=== PATIENT | female | born 1940 | race Caucasian/White ===

== ENCOUNTER 2017-02-04 10:00 | Inpatient (IN) | payer OTHER, BC ==
[~2017-02-04] VITALS: Ht 152.4 cm; Wt 111.6 kg
[~2017-02-04 10:00] MED LIST: ALLOPURINOL100 MG PO; AMLODIPINE BESYL5 MG PO; ASPIR 8181 M1 PO; BONINE25 MG PO; CARVEDILOL25 MG PO; CELEXA40 MG PO; CITALOPRAM HBR20 MG PO; CITALOPRAM HBR40 MG PO; COLCRYS0.6 MG PO; COREG25 M1 PO; DAILY VITE1 EAC1 PO; FLEXERIL10 MG PO; FLUTICASONE PRO16 GM BOTH NARES; FUROSEMIDE40 MG PO; GABAPENTIN300 MG PO; HYDROCHLOROTHIA25 MG PO; IMDUR30 MG PO; LASIX20 MG PO; LEVAQUIN750 MG PO; LIDOCAINE700 MG TD; LIPITOR80 MG PO; LISINOPRIL40 MG PO; LOPRESSOR50 MG PO; NITROSTAT0.4 MG SL; OXYCODONE HCL5 MG PO; POLYETHYLENE GL17 GM PO; POTASSIUM CHLO20 ME1 PO; RANITIDINE HCL150 MG PO; SENNA-TIME S T1 EACH PO; SUMATRIPTAN SUC25 MG PO; SYSTANE BALANCE10 ML BOTH EYES; TOPIRAMATE25 MG PO; TRAMADOL HCL50 MG PO; TYLENOL EXTRA500 MG PO; VENTOLIN HFA18 GM IH; VITAMIN B-125000 MC1 PO; VITAMIN B-6100 MG PO; VITAMIN D22000 UNIT PO; VITAMIN D31000 UNI2 PO; ZESTRIL40 MG PO; ZYLOPRIM100 MG PO; ZYRTEC10 M2 PO
[2017-02-04 11:18] LABS: BASOPHIL COUNT 0.1 K/uL (0-0.1); EOSINOPHIL (%) 1.4 % (0-5); EOSINOPHIL COUNT 0.2 K/uL (0-0.3); HEMATOCRIT 34.1 % (36.0-46.0); IMMATURE GRANULOCYTE (%) 0.6 % (0.0-0.7); IMMATURE GRANULOCYTE COUNT 0.1 K/uL; INSTRUMENT ABS NEUTROPHIL CT 7.2 K/uL; LYMPHOCYTE COUNT 2.1 K/uL (1.0-2.8); MCH 29.6 PG (29.0-34.0); MCHC 32.6 G/DL (30.0-36.0); MCV 90.9 FL (83-99); MEAN PLAT.VOLUME 9.4 uM^3 (9.5-12.4); MONOCYTE (%) 8.5 % (3-12); MONOCYTE COUNT 0.9 K/uL (0-0.8); NEUTROPHIL (%) 68.5 % (45-76); NEUTROPHIL COUNT 7.2 K/uL (1.8-6.4); PLATELET COUNT 264 K/uL (156-360); RBC DIS.WIDTH-SD 46.8 % (39-53); RED BLOOD COUNT 3.75 M/uL (3.80-5.20); WHITE BLOOD COUNT 10.5 K/uL (4.1-10.2)
[2017-02-04 11:26] LABS: CHLORIDE 102 mEq/L (99-109); SODIUM 138 mEq/L (136-147)
[2017-02-04 11:28] LABS: GLUCOSE 95 mg/dL (70-99)
[2017-02-04 11:29] LABS: ANION GAP 9 MEQ/L (2-14)
[2017-02-04 11:30] LABS: TOTAL BILIRUBIN 0.8 mg/dL (0.0-1.0)
[2017-02-04 11:32] LABS: ALKALINE PHOSPHATASE 123 IU/L (3-129); GFR ESTIMATE (CALCULATED) 58 mL/min/
[2017-02-04 11:33] LABS: UREA NITROGEN (BUN) 25 mg/dL (9-23)
[2017-02-04 11:35] LABS: LIPASE 17 U/L (1.0-51.0)
[2017-02-04 12:45] LABS: ADD MIUA? YES; BILIRUBIN NEGATIVE; BLOOD NEGATIVE; COLOR YELLOW ((YELLOW)); GLUCOSE (STRIP) NEGATIVE; KETONES NEGATIVE; LEUKOCYTES MODERATE; NITRITE NEGATIVE; PROTEIN (STRIP) NEGATIVE; SPECIFIC GRAVITY 1.015 (1.000-1.030); UROBILINOGEN 0.2 MG/DL (0.2-1.0)
[2017-02-04 13:17] LABS: BACTERIA NONE SEEN /HPF; EPITHELIAL CELLS 1+ /HPF; MUCUS NONE SEEN /LPF; RED BLOOD CELLS 0-5 /HPF (0-5); UCUL ADDED? NO; WHITE BLOOD CELLS 20-30 /HPF (0-5)
[2017-02-04 15:06] LABS: C DIFF TOXIN NEGATIVE (NEGATIVE)
[2017-02-04] MEDS ORDERED: ISOSORBIDE DINI30 MG PO (15:24)
[2017-02-04] MEDS ORDERED: IRON325 M1 PO (15:26)
[2017-02-04] MEDS ORDERED: FLONASE16 G1 BOTH NARES (15:27)
[2017-02-04] MEDS ORDERED: CALCIUM 500 +1 EAC4 PO (15:27)
[2017-02-04] MEDS ORDERED: TYLENOL REGULA325 MG PO (15:30)
[2017-02-04] MEDS ORDERED: CIPRO500 MG PO (15:31)
[2017-02-04] MEDS ORDERED: ZOFRAN8 MG PO (15:32)
[2017-02-04] MEDS ORDERED: GAS-X125 MG PO (15:32)
[2017-02-04] MEDS ORDERED: CELEXA40 MG PO (15:33)
[2017-02-04] MEDS ORDERED: VITAMIN B-6100 MG PO (15:36)
[2017-02-04 15:40] LABS: PROBE CHECK PASS; SPECIMEN PROCESSING CONTROL PASS
[2017-02-04 18:26] VITALS: BP 144/66
[2017-02-04 20:16] VITALS: BP 159/65
[2017-02-04 23:15] VITALS: BP 145/68
[2017-02-05 04:32] VITALS: BP 119/59
[2017-02-05 05:55] LABS: BASOPHIL COUNT 0.1 K/uL (0-0.1); EOSINOPHIL COUNT 0.1 K/uL (0-0.3); HEMATOCRIT 30.2 % (36.0-46.0); IMMATURE GRANULOCYTE (%) 0.7 % (0.0-0.7); IMMATURE GRANULOCYTE COUNT 0.1 K/uL; INSTRUMENT ABS NEUTROPHIL CT 8.3 K/uL; LYMPHOCYTE COUNT 2.4 K/uL (1.0-2.8); MCHC 33.8 G/DL (30.0-36.0); MCV 91.8 FL (83-99); MEAN PLAT.VOLUME 9.5 uM^3 (9.5-12.4); MONOCYTE (%) 8.5 % (3-12); NEUTROPHIL (%) 69.5 % (45-76); NEUTROPHIL COUNT 8.3 K/uL (1.8-6.4); PLATELET COUNT 234 K/uL (156-360); RBC DIS.WIDTH-CV 14.2 % (11.8-14.6); RED BLOOD COUNT 3.29 M/uL (3.80-5.20); WHITE BLOOD COUNT 11.9 K/uL (4.1-10.2)
[2017-02-05 06:22] LABS: ANION GAP 7 MEQ/L (2-14); CHLORIDE 105 MEQ/L (99-109); GFR ESTIMATE (CALCULATED) > 59 mL/min/; GLUCOSE 95 mg/dL (70-99); POTASSIUM 3.8 MEQ/L (3.7-5.4); SAMPLE HEMOLYSIS CHECK 0; SAMPLE ICTERIC CHECK 0; SAMPLE LIPEMIA CHECK 0; SODIUM 138 MEQ/L (136-147); UREA NITROGEN (BUN) 16 mg/dL (9-23)
[2017-02-05 08:22] VITALS: BP 132/67
[2017-02-05 16:27] VITALS: BP 116/55
[2017-02-06 00:06] VITALS: BP 108/57
[2017-02-06 07:30] VITALS: BP 142/65
[2017-02-06 10:56] LABS: HEMATOCRIT 28.2 % (36.0-46.0); MCH 29.6 PG (29.0-34.0); MCHC 31.9 G/DL (30.0-36.0); MCV 92.8 FL (83-99); MEAN PLAT.VOLUME 9.5 uM^3 (9.5-12.4); PLATELET COUNT 234 K/uL (156-360); RBC DIS.WIDTH-CV 14.3 % (11.8-14.6); RBC DIS.WIDTH-SD 48.2 % (39-53); RED BLOOD COUNT 3.04 M/uL (3.80-5.20); WHITE BLOOD COUNT 7.5 K/uL (4.1-10.2)
[2017-02-06 15:00] VITALS: BP 130/60
[2017-02-07 06:34] LABS: HEMATOCRIT 28.5 % (36.0-46.0); MCH 30.1 PG (29.0-34.0); MCV 91.3 FL (83-99); MEAN PLAT.VOLUME 9.4 uM^3 (9.5-12.4); PLATELET COUNT 247 K/uL (156-360); RBC DIS.WIDTH-SD 46.9 % (39-53); RED BLOOD COUNT 3.12 M/uL (3.80-5.20); WHITE BLOOD COUNT 10.3 K/uL (4.1-10.2)
[2017-02-07 07:30] VITALS: BP 167/70
[2017-02-07 12:00] VITALS: BP 176/76
[2017-02-07 15:50] VITALS: BP 162/69
[2017-02-08 00:04] VITALS: BP 170/71
[2017-02-08 06:47] LABS: MCH 30.2 PG (29.0-34.0); MCHC 33.8 G/DL (30.0-36.0); MCV 89.5 FL (83-99); MEAN PLAT.VOLUME 9.5 uM^3 (9.5-12.4); PLATELET COUNT 243 K/uL (156-360); RBC DIS.WIDTH-CV 13.9 % (11.8-14.6); RBC DIS.WIDTH-SD 45.1 % (39-53); RED BLOOD COUNT 3.24 M/uL (3.80-5.20); WHITE BLOOD COUNT 11.5 K/uL (4.1-10.2)
[2017-02-08 07:18] LABS: ANION GAP 11 MEQ/L (2-14); CHLORIDE 105 MEQ/L (99-109); GFR ESTIMATE (CALCULATED) > 59 mL/min/; GLUCOSE 78 mg/dL (70-99); POTASSIUM 3.3 MEQ/L (3.7-5.4); SAMPLE HEMOLYSIS CHECK 0; SAMPLE ICTERIC CHECK 0; SAMPLE LIPEMIA CHECK 0; SODIUM 139 MEQ/L (136-147); UREA NITROGEN (BUN) 10 mg/dL (9-23)
[2017-02-08 07:30] VITALS: BP 155/81
[2017-02-08 16:26] VITALS: BP 179/76
[2017-02-08 21:55] LABS: C DIFF TOXIN ND (NEGATIVE)
[2017-02-08 23:37] VITALS: BP 138/69
[2017-02-09 06:49] LABS: HEMATOCRIT 28.6 % (36.0-46.0); MCH 29.9 PG (29.0-34.0); MCHC 33.6 G/DL (30.0-36.0); MCV 89.1 FL (83-99); MEAN PLAT.VOLUME 9.3 uM^3 (9.5-12.4); NRBC (%) 0.2 /100 WBC (0-0); PLATELET COUNT 253 K/uL (156-360); RBC DIS.WIDTH-CV 13.9 % (11.8-14.6); RBC DIS.WIDTH-SD 45.3 % (39-53); RED BLOOD COUNT 3.21 M/uL (3.80-5.20); WHITE BLOOD COUNT 9.7 K/uL (4.1-10.2)
[2017-02-09 07:18] LABS: ANION GAP 9 MEQ/L (2-14); CHLORIDE 107 MEQ/L (99-109); GFR ESTIMATE (CALCULATED) > 59 mL/min/; GLUCOSE 90 mg/dL (70-99); POTASSIUM 3.4 MEQ/L (3.7-5.4); SAMPLE HEMOLYSIS CHECK 0; SAMPLE ICTERIC CHECK 0; SAMPLE LIPEMIA CHECK 0; SODIUM 140 MEQ/L (136-147); UREA NITROGEN (BUN) 11 mg/dL (9-23)
[2017-02-09 07:35] VITALS: BP 172/79
[2017-02-09] MEDS ORDERED: LEVAQUIN750 MG PO ×2 (10:26→10:27)
[2017-02-09] MEDS ORDERED: FLAGYL500 MG PO ×2 (10:26→10:27)
== END 2017-02-09 11:45 | disposition home health service (06) | DRG 392 ==
LOC: EME 10:00 → 2EAST 16:08 → EDOF 16:08 → 2EAST 18:02
PROVIDERS: Emergency Medicine; Hospitalist
DX: K57.32 Diverticulitis of large intestine without perforation or abscess without bleeding (principal); I11.0 Hypertensive heart disease with heart failure; I50.32 Chronic diastolic (congestive) heart failure; R53.1 Weakness; E78.00 Pure hypercholesterolemia, unspecified; E78.5 Hyperlipidemia, unspecified; G47.33 Obstructive sleep apnea (adult) (pediatric); I25.10 Atherosclerotic heart disease of native coronary artery without angina pectoris; K21.9 Gastro-esophageal reflux disease without esophagitis; K52.9 Noninfective gastroenteritis and colitis, unspecified; K59.00 Constipation, unspecified; K62.89 Other specified diseases of anus and rectum; Z68.42 Body mass index [BMI] 45.0-49.9, adult; Z79.82 Long term (current) use of aspirin; Z79.899 Other long term (current) drug therapy; Z98.61 Coronary angioplasty status; Z86.73 Personal history of transient ischemic attack (TIA), and cerebral infarction without residual deficits; Z87.19 Personal history of other diseases of the digestive system; R51 Headache; E66.9 Obesity, unspecified
CPT/HCPCS: 71020; 74177; 80048; 80053; 81003; 83605; 83615; 83690; 85025; 85027; 87040; 87493; 93005; 94660; 94799; 99281; 99285; J0696; J0744; J1650; J1956; J2270; J2405; J2543; J2765; J3370; J7030; J7050; S0028; S0030

== ENCOUNTER → 2017-05-04 | Outpatient (CLI) | payer OTHER, BC ==
[~2017-05-04] VITALS: Ht 151.1 cm; Wt 113.4 kg
[~2017-05-04] MED LIST changes: +CALCIUM 500 +1 EAC4 PO; +CIPRO500 MG PO; +FLAGYL500 MG PO; +FLONASE16 G1 BOTH NARES; +GAS-X125 MG PO; +IRON325 M1 PO; +ISOSORBIDE DINI30 MG PO; +TYLENOL REGULA325 MG PO; +ZOFRAN8 MG PO
== END | disposition home or self-care (01) ==
LOC: AMB 12:14
DX: K57.32 Diverticulitis of large intestine without perforation or abscess without bleeding (principal); D12.3 Benign neoplasm of transverse colon; K63.5 Polyp of colon; K64.8 Other hemorrhoids; K52.9 Noninfective gastroenteritis and colitis, unspecified; K59.00 Constipation, unspecified; Z79.82 Long term (current) use of aspirin; E66.9 Obesity, unspecified; Z68.42 Body mass index [BMI] 45.0-49.9, adult; Z90.49 Acquired absence of other specified parts of digestive tract; Z90.710 Acquired absence of both cervix and uterus; Z96.653 Presence of artificial knee joint, bilateral
CPT/HCPCS: 88305

== ENCOUNTER 2017-07-27 11:32 | Day surgery (SDC) | payer OTHER, BC ==
[~2017-07-27] VITALS: Ht 165.1 cm; Wt 115.0 kg
== END 2017-07-27 18:30 | disposition home or self-care (01) ==
LOC: CATH 11:32
DX: I25.10 Atherosclerotic heart disease of native coronary artery without angina pectoris (principal); I10 Essential (primary) hypertension; E66.01 Morbid (severe) obesity due to excess calories; Z68.42 Body mass index [BMI] 45.0-49.9, adult; E78.5 Hyperlipidemia, unspecified; G47.33 Obstructive sleep apnea (adult) (pediatric); Z79.82 Long term (current) use of aspirin; Z86.73 Personal history of transient ischemic attack (TIA), and cerebral infarction without residual deficits; Z95.5 Presence of coronary angioplasty implant and graft
CPT/HCPCS: C1769; C1887; J1644; J2250; J3010

== ENCOUNTER 2017-12-20 13:37 | Emergency (ER) | payer OTHER, BC ==
[~2017-12-20] VITALS: Ht 152.4 cm; Wt 106.0 kg
[2017-12-20 16:07] LABS: BASOPHIL (%) 0.5 % (0-1); EOSINOPHIL (%) 3.8 % (0-5); EOSINOPHIL COUNT 0.2 K/uL (0-0.3); HEMATOCRIT 33.4 % (36.0-46.0); HEMOGLOBIN 11.1 G/DL (11.9-15.5); IMMATURE GRANULOCYTE (%) 0.3 % (0.0-0.7); LYMPHOCYTE (%) 46.1 % (15-42); LYMPHOCYTE COUNT 2.7 K/uL (1.0-2.8); MCH 29.6 PG (29.0-34.0); MCHC 33.2 G/DL (30.0-36.0); MCV 89.1 FL (83-99); MONOCYTE (%) 8.9 % (3-12); MONOCYTE COUNT 0.5 K/uL (0-0.8); NEUTROPHIL (%) 40.4 % (45-76); NEUTROPHIL COUNT 2.4 K/uL (1.8-6.4); PLATELET COUNT 200 K/uL (156-360); RBC DIS.WIDTH-SD 48.1 % (39-53); RED BLOOD COUNT 3.75 M/uL (3.80-5.20); WHITE BLOOD COUNT 5.9 K/uL (4.1-10.2)
[2017-12-20 16:16] LABS: CHLORIDE 106 mEq/L (99-109); POTASSIUM 3.9 mEq/L (3.7-5.4); SODIUM 145 mEq/L (136-147)
[2017-12-20 16:18] LABS: GLUCOSE 90 mg/dL (70-99)
[2017-12-20 16:22] LABS: CREATININE 0.8 mg/dL (0.6-1.3); GFR ESTIMATE (CALCULATED) > 59 mL/min/
[2017-12-20 16:23] LABS: UREA NITROGEN (BUN) 20 mg/dL (9-23)
[2017-12-20 16:28] LABS: TROP-I INTERPRETATION NEGATIVE; TROPONIN-I < 0.01 ng/mL (0.0-0.30)
[2017-12-20 17:13] LABS: APPEARANCE CLEAR ((CLEAR)); BILIRUBIN NEGATIVE; BLOOD NEGATIVE; COLOR YELLOW ((YELLOW)); GLUCOSE (STRIP) NEGATIVE; KETONES NEGATIVE; LEUKOCYTES TRACE; NITRITE NEGATIVE; PROTEIN (STRIP) NEGATIVE; SPECIFIC GRAVITY 1.016 (1.000-1.030)
[2017-12-20 17:23] LABS: BACTERIA NONE SEEN /HPF; EPITHELIAL CELLS RARE /HPF; HYALINE CASTS 0-5 /LPF; MUCUS TRACE /LPF; RED BLOOD CELLS 0-5 /HPF (0-5); UCUL ADDED? NO; WHITE BLOOD CELLS 0-5 /HPF (0-5)
[2017-12-20 20:08] VITALS: BP 144/79
== END 2017-12-20 20:20 | disposition home or self-care (01) ==
LOC: EME 13:37
PROVIDERS: Emergency Medicine
DX: I95.1 Orthostatic hypotension (principal); R00.1 Bradycardia, unspecified; E78.5 Hyperlipidemia, unspecified; M19.90 Unspecified osteoarthritis, unspecified site; Z79.82 Long term (current) use of aspirin; Z95.9 Presence of cardiac and vascular implant and graft, unspecified; Z96.653 Presence of artificial knee joint, bilateral; Z98.41 Cataract extraction status, right eye; Z98.42 Cataract extraction status, left eye; Z98.890 Other specified postprocedural states; Z86.73 Personal history of transient ischemic attack (TIA), and cerebral infarction without residual deficits; Z86.79 Personal history of other diseases of the circulatory system; Z90.49 Acquired absence of other specified parts of digestive tract; Z85.9 Personal history of malignant neoplasm, unspecified
CPT/HCPCS: 71046; 80048; 81003; 83605; 83880; 84484; 85025; 87040; 93005; 99281; 99285

== ENCOUNTER 2018-03-02 13:28 | Inpatient (IN) | payer OTHER, BC ==
[~2018-03-02] VITALS: Ht 152.4 cm; Wt 99.6 kg
[2018-03-02 13:47] LABS: HEMATOCRIT 35.7 % (36.0-46.0); HEMOGLOBIN 12.1 G/DL (11.9-15.5); MCHC 33.9 G/DL (30.0-36.0); MCV 88.4 FL (83-99); PLATELET COUNT 196 K/uL (156-360); RBC DIS.WIDTH-CV 14.6 % (11.8-14.6); RBC DIS.WIDTH-SD 46.6 % (39-53); RED BLOOD COUNT 4.04 M/uL (3.80-5.20); WHITE BLOOD COUNT 10.4 K/uL (4.1-10.2)
[2018-03-02 13:59] LABS: ALBUMIN 4.2 g/dL (3.2-4.8)
[2018-03-02 14:00] LABS: CHLORIDE 104 mEq/L (99-109); POTASSIUM 3.8 mEq/L (3.7-5.4); SODIUM 140 mEq/L (136-147)
[2018-03-02 14:02] LABS: GLUCOSE 85 mg/dL (70-99); TOTAL PROTEIN 7.2 g/dL (6.4-8.3)
[2018-03-02 14:04] LABS: TOTAL BILIRUBIN 0.7 mg/dL (0.0-1.0)
[2018-03-02 14:05] LABS: ALKALINE PHOSPHATASE 147 IU/L (3-129)
[2018-03-02 14:06] LABS: CREATININE 0.9 mg/dL (0.6-1.3); GFR ESTIMATE (CALCULATED) > 59 mL/min/
[2018-03-02 14:07] LABS: AST (GOT) 20 IU/L (2-34); UREA NITROGEN (BUN) 13 mg/dL (9-23)
[2018-03-02 14:09] LABS: ALT (GPT) 15 IU/L (3-49); LIPASE 7 U/L (1.0-51.0)
[2018-03-02 16:14] LABS: APPEARANCE CLEAR ((CLEAR)); BILIRUBIN NEGATIVE; BLOOD SMALL; COLOR YELLOW ((YELLOW)); GLUCOSE (STRIP) NEGATIVE; KETONES NEGATIVE; LEUKOCYTES MODERATE; NITRITE NEGATIVE; PROTEIN (STRIP) NEGATIVE; SPECIFIC GRAVITY 1.019 (1.000-1.030)
[2018-03-02 16:19] LABS: BACTERIA RARE /HPF; EPITHELIAL CELLS RARE /HPF; MUCUS TRACE /LPF; RED BLOOD CELLS 0-5 /HPF (0-5); UCUL ADDED? YES
[2018-03-02] MEDS ORDERED: K-DUR20 MEQ PO (18:48)
[2018-03-02] MEDS ORDERED: LIPITOR80 MG PO (18:49)
[2018-03-02] MEDS ORDERED: NITROSTAT0.4 MG SL (18:49)
[2018-03-02] MEDS ORDERED: LISINOPRIL20 MG PO (18:50)
[2018-03-02] MEDS ORDERED: COREG12.5 M1 PO (18:52)
[2018-03-02] MEDS ORDERED: LASIX20 MG PO (18:54)
[2018-03-02] MEDS ORDERED: ZYRTEC5 MG PO (18:54)
[2018-03-02] MEDS ORDERED: ARTIFICIAL TEAR15 M1 BOTH EYES (18:55)
[2018-03-02] MEDS ORDERED: ALLOPURINOL100 MG PO (18:58)
[2018-03-02] MEDS ORDERED: IBUPROFEN600 MG PO (18:58)
[2018-03-02 20:40] VITALS: BP 150/67
[2018-03-03] VITALS (7 sets, daily range): BP systolic 102–162; BP diastolic 51–73
[2018-03-03 05:48] LABS: BASOPHIL (%) 0.6 % (0-1); EOSINOPHIL (%) 2.5 % (0-5); EOSINOPHIL COUNT 0.2 K/uL (0-0.3); HEMATOCRIT 30.8 % (36.0-46.0); IMMATURE GRANULOCYTE (%) 0.2 % (0.0-0.7); LYMPHOCYTE (%) 30.9 % (15-42); MCH 29.3 PG (29.0-34.0); MCHC 32.5 G/DL (30.0-36.0); MCV 90.3 FL (83-99); MONOCYTE (%) 9.5 % (3-12); MONOCYTE COUNT 0.6 K/uL (0-0.8); NEUTROPHIL (%) 56.3 % (45-76); NEUTROPHIL COUNT 3.6 K/uL (1.8-6.4); RBC DIS.WIDTH-CV 14.9 % (11.8-14.6); RBC DIS.WIDTH-SD 49.1 % (39-53); RED BLOOD COUNT 3.41 M/uL (3.80-5.20); WHITE BLOOD COUNT 6.3 K/uL (4.1-10.2)
[2018-03-03 05:59] LABS: ALBUMIN 3.3 G/DL (3.2-4.8); ALKALINE PHOSPHATASE 98 IU/L (3-129); ALT (GPT) 9 IU/L (3-49); AST (GOT) 14 IU/L (2-34); CHLORIDE 109 MEQ/L (99-109); CREATININE 0.9 MG/DL (0.6-1.3); GFR ESTIMATE (CALCULATED) > 59 mL/min/; GLUCOSE 98 mg/dL (70-99); PLATELET CLUMPS PRESENT - PLATELET COUNT APPEARS ADQ.; POTASSIUM 3.3 MEQ/L (3.7-5.4); SODIUM 142 MEQ/L (136-147); TOTAL BILIRUBIN 0.7 MG/DL (0.0-1.0); TOTAL PROTEIN 5.4 G/DL (6.4-8.3); UREA NITROGEN (BUN) 14 mg/dL (9-23)
[2018-03-03 06:00] LABS: PLATELET COUNT UNABLE TO REPORT K/uL (156-360)
[2018-03-04 03:55] VITALS: BP 150/60
[2018-03-04 06:49] LABS: BASOPHIL (%) 0.8 % (0-1); EOSINOPHIL (%) 3.8 % (0-5); EOSINOPHIL COUNT 0.2 K/uL (0-0.3); HEMATOCRIT 28.9 % (36.0-46.0); HEMOGLOBIN 9.5 G/DL (11.9-15.5); IMMATURE GRANULOCYTE (%) 0.2 % (0.0-0.7); LYMPHOCYTE (%) 39.3 % (15-42); LYMPHOCYTE COUNT 2.1 K/uL (1.0-2.8); MCH 29.6 PG (29.0-34.0); MCHC 32.9 G/DL (30.0-36.0); MONOCYTE COUNT 0.5 K/uL (0-0.8); NEUTROPHIL (%) 46.9 % (45-76); NEUTROPHIL COUNT 2.4 K/uL (1.8-6.4); RBC DIS.WIDTH-CV 14.6 % (11.8-14.6); RBC DIS.WIDTH-SD 48.4 % (39-53); RED BLOOD COUNT 3.21 M/uL (3.80-5.20); WHITE BLOOD COUNT 5.2 K/uL (4.1-10.2)
[2018-03-04 06:54] LABS: PLATELET COUNT 125 K/uL (156-360)
[2018-03-04 07:06] LABS: CHLORIDE 110 MEQ/L (99-109); CREATININE 0.8 MG/DL (0.6-1.3); GFR ESTIMATE (CALCULATED) > 59 mL/min/; GLUCOSE 84 mg/dL (70-99); POTASSIUM 3.8 MEQ/L (3.7-5.4); SODIUM 142 MEQ/L (136-147); UREA NITROGEN (BUN) 10 mg/dL (9-23)
[2018-03-04 08:14] VITALS: BP 159/75
[2018-03-04 16:33] VITALS: BP 208/84; BP 2208/84
[2018-03-04 17:45] VITALS: BP 168/72
[2018-03-04 19:58] VITALS: BP 174/66
[2018-03-04 22:46] VITALS: BP 159/65
[2018-03-05 05:54] VITALS: BP 139/65
[2018-03-05 06:06] LABS: HEMATOCRIT 30.3 % (36.0-46.0); HEMOGLOBIN 9.9 G/DL (11.9-15.5); MCH 29.2 PG (29.0-34.0); MCHC 32.7 G/DL (30.0-36.0); MCV 89.4 FL (83-99); PLATELET COUNT 123 K/uL (156-360); RBC DIS.WIDTH-CV 14.4 % (11.8-14.6); RBC DIS.WIDTH-SD 47.2 % (39-53); RED BLOOD COUNT 3.39 M/uL (3.80-5.20); WHITE BLOOD COUNT 4.7 K/uL (4.1-10.2)
[2018-03-05 06:29] LABS: CHLORIDE 109 MEQ/L (99-109); CREATININE 0.8 MG/DL (0.6-1.3); GFR ESTIMATE (CALCULATED) > 59 mL/min/; GLUCOSE 82 mg/dL (70-99); POTASSIUM 3.7 MEQ/L (3.7-5.4); SODIUM 142 MEQ/L (136-147); UREA NITROGEN (BUN) 10 mg/dL (9-23)
[2018-03-05 08:00] VITALS: BP 124/58
[2018-03-05 16:59] VITALS: BP 146/67
[2018-03-06 00:09] VITALS: BP 164/76
[2018-03-06 07:09] VITALS: BP 140/63
[2018-03-06] MEDS ORDERED: FLAGYL500 MG PO (10:49)
[2018-03-06] MEDS ORDERED: LEVAQUIN500 MG PO (10:49)
[2018-03-06] MEDS ORDERED: MOTRIN400 MG PO (10:49)
[2018-03-06] MEDS ORDERED: PEPCID20 MG PO (10:49)
== END 2018-03-06 14:00 | disposition home or self-care (01) | DRG 392 ==
LOC: EME 13:28 → EDOF 18:10 → 5SOUTH 18:10 → ENRESERV 18:18 → 5SOUTH 20:27
PROVIDERS: Internal Medicine; Student in an Organized Health Care Education/Training Program
DX: K57.20 Diverticulitis of large intestine with perforation and abscess without bleeding (principal); K62.5 Hemorrhage of anus and rectum; E87.6 Hypokalemia; I11.0 Hypertensive heart disease with heart failure; I50.9 Heart failure, unspecified; D64.9 Anemia, unspecified; K64.9 Unspecified hemorrhoids; I25.10 Atherosclerotic heart disease of native coronary artery without angina pectoris; E66.9 Obesity, unspecified; Z68.41 Body mass index [BMI] 40.0-44.9, adult; K21.9 Gastro-esophageal reflux disease without esophagitis; G43.909 Migraine, unspecified, not intractable, without status migrainosus; E78.5 Hyperlipidemia, unspecified; M19.90 Unspecified osteoarthritis, unspecified site; Z95.5 Presence of coronary angioplasty implant and graft; Z96.653 Presence of artificial knee joint, bilateral; Z86.73 Personal history of transient ischemic attack (TIA), and cerebral infarction without residual deficits
CPT/HCPCS: 74177; 80048; 80053; 81003; 83690; 85025; 85027; 87040; 87086; 87493; 87506; 99281; 99285; J0360; J0744; J1644; J1885; J1956; J2405; J3480; J7040; J7042; S0028; S0030